=== PATIENT | male | born 1970 | race Caucasian/White ===

== ENCOUNTER 2017-08-03 02:09 | Emergency (ER) | payer SELFPAY ==
[~2017-08-03] VITALS: Ht 180.3 cm; Wt 90.0 kg
[2017-08-03] MEDS ORDERED: ONDANSETRON HCL 4MG/2ML VIAL IV STA (02:34)
[2017-08-03] MEDS ORDERED: SODIUM CHLORIDE 0.9% 1,000 ML IV ONE (02:34)
[2017-08-03] MEDS ORDERED: TETANUS, DIPHTHERIA, PERTUSSIS VAC/PF 0.5ML (>7YR OLD) IM ONE (02:45)
[2017-08-03] MEDS ORDERED: FENTANYL CITRATE/PF 50MCG/ML 2ML VIAL IV ONE (02:45)
[2017-08-03] MEDS ORDERED: CEFAZOLIN 1000MG PREMIX 50 ML IV ONE (02:45)
[2017-08-03] MEDS ORDERED: LIDOCAINE HCL 1% 20ML VIAL (Pyxis) INJ MC ONE (02:45)
[2017-08-03] MEDS ORDERED: BACITRACIN ZINC OINT UDPKT TOP ONE (02:45)
[2017-08-03 07:11] VITALS: BP 123/84
== END 2017-08-03 07:58 | disposition home or self-care (01) ==
LOC: ER 02:09
DX: S01.01XA Laceration without foreign body of scalp, initial encounter (principal); M79.641 Pain in right hand; Y08.89XA Assault by other specified means, initial encounter; Y93.89 Activity, other specified; Y92.89 Other specified places as the place of occurrence of the external cause; Y99.8 Other external cause status; Z59.0 Homelessness
CPT/HCPCS: 12002; 70450; 70486; 73130; 90471; 90715; 96361; 96365; 96375; 99284; A4217; J0690; J2405; J3010; J3490; J7030; Z7610

== ENCOUNTER 2018-11-05 22:17 | Emergency (ER) | payer SELFPAY ==
[~2018-11-05] VITALS: Ht 177.8 cm; Wt 78.0 kg
[2018-11-06] MEDS ORDERED: SODIUM CHLORIDE 0.9% 1,000 ML IV ONE (04:30)
[2018-11-06 04:53] LABS: BASOPHILS % 1.4 % (0.0-2.0); EOSINOPHILS % 3.4 % (0.0-5.0); HEMATOCRIT. 45.2 % (42.0-52.0); HEMOGLOBIN. 14.9 g/dL (14.0-18.0); LYMPHOCYTES % 27.3 % (20.0-50.0); MEAN CORPUSCULAR HEMOGLOBIN 31.6 pg (28.0-32.0); MEAN PLATELET VOLUME 8.7 fl (7.4-10.4); MONOCYTES % 10.3 % (2.0-8.0); NEUTROPHILS % 57.6 % (40.0-76.0); PLATELET 254 x1000/uL (130-400); RED BLOOD CELL COUNT 4.71 mill/uL (4.7-6.1); RED CELL DISTRIBUTION WIDTH 14.6 % (11.6-14.6)
[2018-11-06 04:59] LABS: PROTHROMBIN TIME 10.6 sec (9.6-11.0)
[2018-11-06 05:07] LABS: CHLORIDE 107 mEq/L (98-107)
[2018-11-06 05:43] LABS: CLARITY URINE CLEAR (CLEAR); COLOR URINE YELLOW (YELLOW); KETONES URINE TRACE (NEGATIVE); LEUKOCYTE ESTERASE URINE NEGATIVE (NEGATIVE); NITRITE URINE NEGATIVE (NEGATIVE); OCCULT BLOOD URINE NEGATIVE (NEGATIVE); PH URINE 5.5 (4.5-8.0); PROTEIN URINE NEGATIVE (NEGATIVE); SPECIFIC GRAVITY URINE 1.028 (1.005-1.030)
[2018-11-06] MEDS ORDERED: POTASSIUM CHLORIDE 20MEQ TABLET SR PO ONE (06:30)
[2018-11-06 07:11] VITALS: BP 113/84
== END 2018-11-06 07:13 | disposition home or self-care (01) ==
LOC: ER 22:17
DX: R10.84 Generalized abdominal pain (principal); R11.2 Nausea with vomiting, unspecified; E87.6 Hypokalemia; F15.10 Other stimulant abuse, uncomplicated; F14.10 Cocaine abuse, uncomplicated; F17.210 Nicotine dependence, cigarettes, uncomplicated; Z59.0 Homelessness
CPT/HCPCS: 36415; 80053; 81003; 83690; 85025; 85610; 99283; J7030; Z7610

== ENCOUNTER 2018-11-20 22:06 | Inpatient (IN) | payer SELFPAY ==
[~2018-11-20] VITALS: Ht 172.7 cm; Wt 65.0 kg
[2018-11-21 01:09] LABS: BASOPHILS % 0.9 % (0.0-2.0); EOSINOPHILS % 1.9 % (0.0-5.0); HEMATOCRIT. 45.1 % (42.0-52.0); HEMOGLOBIN. 14.9 g/dL (14.0-18.0); LYMPHOCYTES % 20.6 % (20.0-50.0); MEAN CORPUSCULAR HEMOGLOBIN 31.4 pg (28.0-32.0); MEAN CORPUSCULAR VOLUME 94.7 fL (80.0-94.0); MEAN PLATELET VOLUME 9.2 fl (7.4-10.4); MONOCYTES % 11.1 % (2.0-8.0); NEUTROPHILS % 65.5 % (40.0-76.0); PLATELET 238 x1000/uL (130-400); RED BLOOD CELL COUNT 4.76 mill/uL (4.7-6.1); RED CELL DISTRIBUTION WIDTH 14.4 % (11.6-14.6)
[2018-11-21 01:13] LABS: CHLORIDE 107 mEq/L (98-107)
[2018-11-21 01:16] LABS: CLARITY URINE CLOUDY (CLEAR); COLOR URINE YELLOW (YELLOW); KETONES URINE NEGATIVE (NEGATIVE); LEUKOCYTE ESTERASE URINE NEGATIVE (NEGATIVE); NITRITE URINE NEGATIVE (NEGATIVE); OCCULT BLOOD URINE NEGATIVE (NEGATIVE); PROTEIN URINE 1+ (NEGATIVE)
[2018-11-21 01:17] LABS: INR 1.1
[2018-11-21] MEDS ORDERED: MORPHINE SULFATE 4 MG/ML CPJ (NOT FOR IM USE) IV STA (03:59)
[2018-11-21] MEDS ORDERED: ONDANSETRON HCL 4MG/2ML INJ IV STA (03:59)
[2018-11-21] MEDS ORDERED: SODIUM CHLORIDE 0.9% 1,000 ML IV ONE (03:59)
[2018-11-21] MEDS ORDERED: LISINO (09:39)
[2018-11-21] MEDS ORDERED: FURO (09:40)
[2018-11-21] MEDS ORDERED: CARVEDILOL (09:41)
[2018-11-21] MEDS ORDERED: MAGNESIUM/ALUMINUM HYDROXIDE/SIMETHICONE 30ML UDC PO PRN (10:45)
[2018-11-21] MEDS ORDERED: ONDANSETRON HCL 4MG/2ML INJ IV PRN (10:45)
[2018-11-21] MEDS ORDERED: CLONIDINE 0.1MG TABLET PO PRN (10:45)
[2018-11-21] MEDS ORDERED: ACETAMINOPHEN 325MG TABLET PO PRN (10:45)
[2018-11-21 11:26] VITALS: BP 93/68
[2018-11-21] MEDS ORDERED: FURO40TA5 MT (11:40)
[2018-11-21] MEDS ORDERED: LISI-186 MT (11:40)
[2018-11-21] MEDS ORDERED: CARV3.1242 MT (11:41)
[2018-11-21] MEDS ORDERED: PNEUMOCOCCAL 23-VAL P-SAC VAC 0.5 ML IM ONE (12:15)
[2018-11-21 12:24] LABS: AMYLASE 56 IU/L (25-115)
[2018-11-21 12:45] VITALS: BP 93/68
[2018-11-21] MEDS: SODIUM CHLORIDE 0.9% 1,000 ML IV SCH (12:55)
[2018-11-21 15:56] LABS: *AMPHETAMINES SCREEN URINE PRESUMTIVE POSITIVE (NEGATIVE); *BARBITURATES SCREEN URINE NEGATIVE (NEGATIVE); *BENZODIAZEPINES SCREEN URINE NEGATIVE (NEGATIVE); *COCAINE SCREEN URINE NEGATIVE (NEGATIVE); CANNABINOID URINE SCREEN NEGATIVE (NEGATIVE); METHADONE URINE SCREEN NEGATIVE (NEGATIVE); OPIATES URINE SCREEN NEGATIVE (NEGATIVE); PHENCYCLIDINE URINE SCREEN NEGATIVE (NEGATIVE)
[2018-11-21 16:06] LABS: HEPATITIS B SURFACE ANTIGEN NEGATIVE
[2018-11-21 16:35] LABS: HEPATITIS A AB IGM NEGATIVE (NEGATIVE)
[2018-11-21 17:56] VITALS: BP 95/75
[2018-11-21 20:00] VITALS: BP 92/59
[2018-11-21] MEDS: FAMOTIDINE 20MG/2ML VIAL IV SCH (20:33)
[2018-11-22] VITALS: BP 92/62
[2018-11-22 04:00] VITALS: BP 93/69
[2018-11-22] MEDS: SODIUM CHLORIDE 0.9% 1,000 ML IV SCH ×2 (04:26→20:25)
[2018-11-22 07:25] LABS: CHLORIDE 107 mEq/L (98-107)
[2018-11-22 07:26] LABS: BASOPHILS % 0.8 % (0.0-2.0); EOSINOPHILS % 2.5 % (0.0-5.0); HEMATOCRIT. 44.3 % (42.0-52.0); HEMOGLOBIN. 14.7 g/dL (14.0-18.0); LYMPHOCYTES % 32.5 % (20.0-50.0); MEAN CORPUSCULAR HEMOGLOBIN 31.5 pg (28.0-32.0); MEAN CORPUSCULAR VOLUME 95.1 fL (80.0-94.0); MEAN PLATELET VOLUME 9.9 fl (7.4-10.4); MONOCYTES % 11.4 % (2.0-8.0); NEUTROPHILS % 52.8 % (40.0-76.0); PLATELET 250 x1000/uL (130-400); RED BLOOD CELL COUNT 4.66 mill/uL (4.7-6.1); RED CELL DISTRIBUTION WIDTH 14.5 % (11.6-14.6)
[2018-11-22 07:32] LABS: LDL CHOLESTEROL 58 mg/dL (5-100); PHOSPHORUS 2.9 mg/dL (2.5-4.9)
[2018-11-22 07:33] LABS: HDL CHOLESTEROL 24 mg/dL (40-59)
[2018-11-22 07:35] VITALS: BP 98/74
[2018-11-22] MEDS: FUROSEMIDE 20MG/2ML VIAL IVP SCH (09:00)
[2018-11-22] MEDS: LISINOPRIL 5MG TABLET PO SCH (09:00)
[2018-11-22] MEDS: FAMOTIDINE 20MG/2ML VIAL IV SCH ×2 (10:28→20:23)
[2018-11-22 12:00] VITALS: BP 104/77
[2018-11-22 16:00] VITALS: BP 96/67
[2018-11-22] MEDS: DOCUSATE SODIUM 100MG CAPSULE PO SCH (16:35)
[2018-11-22 20:00] VITALS: BP 93/67
[2018-11-23] VITALS: BP 95/67
[2018-11-23 04:00] VITALS: BP 98/68
[2018-11-23 07:31] LABS: BASOPHILS % 1.2 % (0.0-2.0); EOSINOPHILS % 2.5 % (0.0-5.0); HEMATOCRIT. 42.6 % (42.0-52.0); HEMOGLOBIN. 14.3 g/dL (14.0-18.0); LYMPHOCYTES % 23.6 % (20.0-50.0); MEAN CORPUSCULAR HEMOGLOBIN 32.4 pg (28.0-32.0); MEAN CORPUSCULAR VOLUME 96.5 fL (80.0-94.0); MEAN PLATELET VOLUME 9.7 fl (7.4-10.4); MONOCYTES % 11.5 % (2.0-8.0); NEUTROPHILS % 61.2 % (40.0-76.0); PLATELET 234 x1000/uL (130-400); RED BLOOD CELL COUNT 4.41 mill/uL (4.7-6.1); RED CELL DISTRIBUTION WIDTH 14.3 % (11.6-14.6)
[2018-11-23 07:59] LABS: CHLORIDE 107 mEq/L (98-107)
[2018-11-23 08:00] VITALS: BP 99/75
[2018-11-23] MEDS: FAMOTIDINE 20MG/2ML VIAL IV SCH (08:33)
[2018-11-23] MEDS: DOCUSATE SODIUM 100MG CAPSULE PO SCH (08:33)
[2018-11-23] MEDS: LISINOPRIL 5MG TABLET PO SCH (08:34)
[2018-11-23] MEDS: FUROSEMIDE 20MG/2ML VIAL IVP SCH (08:34)
[2018-11-23] MEDS ORDERED: MAGNESIUM CITRATE 300ML SOLUTION PO NR (10:30)
[2018-11-23 11:09] VITALS: BP 99/75
[2018-11-23 12:00] VITALS: BP 107/77
== END 2018-11-23 13:02 | disposition home or self-care (01) | DRG 203 ==
LOC: ER 22:06 → 6WST 11-21 05:21 → EDBEDREQ 11-21 05:28 → EDBEDREQTM 11-21 05:28 → ENRESERV 11-21 10:10
PROVIDERS: ADMIT Family Medicine Adult Medicine; ATTEND Family Medicine Adult Medicine
DX: R07.89 Other chest pain (principal); I95.9 Hypotension, unspecified; I11.0 Hypertensive heart disease with heart failure; I42.9 Cardiomyopathy, unspecified; I50.9 Heart failure, unspecified; E44.1 Mild protein-calorie malnutrition; F19.10 Other psychoactive substance abuse, uncomplicated; R74.0 Nonspecific elevation of levels of transaminase and lactic acid dehydrogenase [LDH]; N28.1 Cyst of kidney, acquired; K59.00 Constipation, unspecified; F15.10 Other stimulant abuse, uncomplicated; Z87.11 Personal history of peptic ulcer disease; Z59.0 Homelessness; Z79.899 Other long term (current) drug therapy; Z86.19 Personal history of other infectious and parasitic diseases; Z68.21 Body mass index [BMI] 21.0-21.9, adult
CPT/HCPCS: 36415; 71045; 76705; 78227; 80048; 80061; 80076; 80305; 82150; 82270; 83605; 83735; 84100; 84443; 84484; 86705; 86709; 86803; 87340; 90732; 93005; 93306; 93970; 99291; A9537; J2270; J2405; J3490; J7030